=== PATIENT | male | born 1985 | race African-American/Black ===

== ENCOUNTER 2023-11-02 00:51 | Emergency (ER) | payer SELFPAY ==
[~2023-11-02] VITALS: Ht 190.5 cm; Wt 116.0 kg
[2023-11-02 01:12] VITALS: BP 157/100
[2023-11-02] MEDS ORDERED: KETOROLAC TROMETHAMINE 30 MG/ML SDV IV ONE (01:25)
[2023-11-02] MEDS ORDERED: PROMETHAZINE HCL 25 MG/ML AMP IV ONE (01:25)
[2023-11-02] MEDS ORDERED: ACETAMINOPHEN 500 MG TAB PO ONE (01:25)
[2023-11-02 01:30] VITALS: BP 150/97
[2023-11-02] MEDS ORDERED: DEXAMETHASONE SOD. PHOSPHATE 10 MG/ML VIAL IV ONE (01:30)
[2023-11-02] MEDS ORDERED: SODIUM CHLORIDE 0.9% 1,000 ML IV ONE (01:30)
[2023-11-02] MEDS ORDERED: DiphenhydrAMINE HCL 50 MG/ML SDV IV ONE (01:30)
[2023-11-02 01:33] VITALS: BP 155/93
[2023-11-02 01:51] LABS: BASO% 0.2 % (0-3); HEMATOCRIT 39.7 % (39.0-50.0); HEMOGLOBIN 12.9 g/dl (14.0-18.0); IMMATURE GRANULOCYTES 0.1 % (0.0-5.0); LYMPH% 14.3 % (15-41); MEAN CELL VOLUME 78.5 fL CALC (80.0-100.0); MEAN CORPUSCULAR HGB 25.5 pG CALC (26.0-32.0); MEAN CORPUSCULAR HGB CONC 32.5 g/dL CAL (32.0-36.0); MONO% 8.6 % (2-13); NEUT# 9.82 thou/uL (1.82-7.42); NEUT% 76.8 % (42-76); RED BLOOD COUNT 5.06 mill/uL (4.70-6.10); RED CELL DISTRI WIDTH 13.6 % (11.5-15.5)
[2023-11-02 02:00] VITALS: BP 145/102
[2023-11-02 02:16] LABS: ALBUMIN 4.7 g/dL (3.2-5.0); BILIRUBIN, TOTAL 0.8 mg/dL (0.2-1.3); CREATININE 1.1 mg/dL (0.7-1.3); POTASSIUM 3.9 mmol/l (3.5-5.1); TOTAL PROTEIN 8.4 g/dL (6.3-8.2)
[2023-11-02 02:31] VITALS: BP 148/96
[2023-11-02 03:01] VITALS: BP 151/90
[2023-11-02] MEDS ORDERED: IMITREX100 M1 PO (03:03)
== END 2023-11-02 04:00 | disposition home or self-care (01) | DRG 103 ==
LOC: ED 00:51
PROVIDERS: Family Medicine
DX: G43.909 Migraine, unspecified, not intractable, without status migrainosus (principal)